=== PATIENT | male | born 1960 | race Caucasian/White ===

== ENCOUNTER → 2024-01-30 07:33 | Outpatient (REF) | payer OTHER, SELFPAY | LOC: MRI 07:33 | PROVIDERS: ATTENDING PHYSICIAN Urology; FAMILY PHYSICIAN Family Medicine | DX: R97.20 Elevated prostate specific antigen [PSA] (principal) | CPT/HCPCS: 72197; A9575 ==

== ENCOUNTER 2024-06-06 11:48 | Emergency (ER) | payer OTHER, SELFPAY ==
[2024-06-06 11:50] VITALS: BP 142/99
--- NOTE | 2024-06-06 13:23 | ED.MUSCINJ ---
HPI-Injury
General
Chief Complaint: Extremity Pain (non-traumatic)
Source: patient
Exam Limitations: none
Time Seen by Provider: 06/06/24 12:36
History of Present Illness-Injury
Initial Injury comments:
63-year-old male presents with relatively atraumatic pain and swelling to the right ankle. He was in [place] for the past several weeks and did a lot of golfing. He has a history of gout and was eating significant amount of seafood in [place] and
developed a gout flare. He received colchicine. He took his colchicine actually on his way driving home. He feels some of his symptoms have improved however he still notes swelling and pain to the anterior medial ankle. He has a history in the
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 No fevers chest pain or shortness breath. No recent injury. No other complaints at this time
Past History
Past History
ED Past Medical History: Other (Lumbar laminectomy at L4-L5 x2, lymphangitic colitis)
ED Past Surgical History: Orthopedic
Social History
Tobacco: Non-smoker
Alcohol: Occasional
Family History
Family History: Other (Father with lung cancer and colon and prostate cancer)
Phy Exam
Physical Exam
Physical Exam:
General: Well-appearing male no acute respiratory distress
HEENT: Normocephalic atraumatic
Heart: Regular rate and rhythm
Lungs: Clear no wheeze
Musculoskeletal exam: Soft tissue swelling about the right ankle is tender anterior medially. There is chronic deformity noted to the right ankle. He has good plantar and dorsiflexion of the right ankle. The right calf is slightly larger than the
left calf
Vascular: 2+ DP pulse right foot
Injury Course
Orders/Labs/Results
Orders:
Orders
06/06/24 12:48
Venous Doppler Lwr Ext Rt [US Periph Venous LOWER Ext RT] Urgent
Comment:
Reason For Exam: swelling
MDM/Problems Addressed
Differential Diagnosis Includes:
Right ankle swelling and pain recent drive back from [place]. Question inflammatory process such as gout versus tendinitis versus arthritis and DVT given recent drive. Ultrasound pending.
*Critical Care Note
Total Time (30-74mins, 75-104mins- exclusive of procedures): Not Applicable
Update Note
Update Note:
Patient with DVT in the right lower leg in the infra popliteal gastrocnemius vein. No respiratory symptoms of chest pain or shortness of breath. Not hypoxic. Will start on Eliquis and have him follow-up with his family doctor
ED Attending Note
-
Portions of this chart may have been created with voice recognition software.� Occasional wrong word or��sound alike� substitutions may have occurred due to the inherent limitations of voice recognition software.
Discharge Plan
Departure
Patient Disposition: Home (Routine Discharge)
Date of Disposition: 06/06/24
Time of Disposition: 15:30
Patient with high blood pressure during this ER visit?: No
Discharge Problem:
DVT (deep venous thrombosis)
Prescriptions:
New
Eliquis 5 mg tablet
5 mg PO BID Qty: 60 0RF
Rx Instructions:
Take 10mg twice a day for one week. Take 5mg twice a day after the first week.
No Action
oxycodone-acetaminophen 5 MG/325 MG tablet
1 tab PO Q4HPRN PRN (Reason: pain) Qty: 30 0RF
methylprednisolone 4 MG tablet
4 mg PO TAPER Qty: 0 0RF
hydrocodone-acetaminophen 1 TABLET tablet
1 tab PO Q4HPRN PRN (Reason: Pain) Qty: 10 0RF
Referrals:
Iza Elizondo MD [Family Provider] -
Activity Restrictions/Additional Instructions:
As discussed, there is a DVT in your right leg. Take Eliquis as directed. Take 10 mg twice a day for the first week then decrease to 5 mg twice a day after. Please continue to follow-up with your foot and ankle doctor as well as her family doctor
Interventions
Interventions:
*Risk Screen - Suicide Last Done: 06/06/24 11:51
*General Assessment Last Done: 06/06/24 11:51
*Neglect/Abuse Screening Last Done: 06/06/24 11:51
*ED- Fall Risk Assessment Last Done: 06/06/24 11:55
*ED COVID-19 Vaccine History Last Done: 06/06/24 11:55
ED-Skin Assessment Last Done: 06/06/24 12:39
ED-Peripheral Vascular Assessment Last Done: 06/06/24 12:39
ED-Musculoskeletal Assessment Last Done: 06/06/24 12:39
Discharge Date and Time
Print Language: PERUVIAN
[2024-06-06 15:15] VITALS: BP 128/96
[2024-06-06] MEDS: ELIQUIS 10 MG PO (15:32)
== END 2024-06-06 15:36 | disposition home or self-care (01) ==
LOC: EMR 11:48
PROVIDERS: EMERGENCY PHYSICIAN Emergency Medicine; FAMILY PHYSICIAN Family Medicine
DX: I82.401 Acute embolism and thrombosis of unspecified deep veins of right lower extremity (principal); Z80.1 Family history of malignant neoplasm of trachea, bronchus and lung
CPT/HCPCS: 99284; 93971

== ENCOUNTER 2024-11-02 12:06 | Emergency (ER) | payer OTHER, SELFPAY ==
[2024-11-02 12:08] VITALS: BP 132/83
--- NOTE | 2024-11-02 14:33 | ED.SKININJ ---
HPI-Injury
General
Chief Complaint: Head Injury
Source: patient
Exam Limitations: none
Time Seen by Provider: 11/02/24 14:07
Nursing documentation reviewed up to this point in time: agreed with
History of Present Illness-Injury
Is this injury a work related problem?: No
Is pt an associate of [facility]?: No
Initial Injury comments:
Patient states 1 week ago he was bending forward to clam picker firewood and fell. Fell forward and hit right forehead on cement floor. No LOC. Was able to get self up without diffiuclty. Developed a hematoma to his right upper forehead but had no
other symptoms. Sunday he flew to [facility] and soon after arriving he developed fever/chills, body aches, headache, diarrhea, lower abd. pain. Symptoms lasted for the remainder of week. Unable to eat or drink. States he was seen at , had neg
UA. Tested for COVID and influenza but was not told results. He returned home yesterday and reports the fever and diarrhe had resolved. Today he was able to eat a small breakfast. Reports continued weakness. States he spoke with [employer] today who
was concerned with norovirus. Advised him to come to ED. TO ED accompanied by .
Past History
Past History
ED Past Medical History: HTN and Other (Lumbar laminectomy at L4-L5 x2, lymphangitic colitis, DVT, essential tremor, prostate CA)
ED Past Surgical History: Orthopedic
Social History
Tobacco: Non-smoker
Alcohol: Occasional
Family History
Family History: Other (Father with lung cancer and colon and prostate cancer)
Review of Systems
Review of Systems
Allergies reviewed?: Yes
All Other Systems: ROS reviewed and negative except as documented in HPI and ROS
Constitutional: Reports fever, fatigue and chills
EENT: Reports no symptoms
Respiratory: Reports no symptoms
Cardiac: Reports no symptoms
ABD/GI: Reports abdominal pain (lower abd. pain this past week) and diarrhea (resolved. Started tu thru sunday)
: Reports dark urine
Musculoskeletal: Reports other (generalized bodyaches since Sunday)
Skin: Reports other (old bruising noted right lower lateral orbit. No bony tenderness, EOMI)
Neurological: Reports headache and weakness
Psychiatric: Reports no symptoms
Phy Exam
General Physical Exam
General Presentation: well appearing and no apparent distress
General age: appears stated age
General Skin: warm and dry
General Habitus: normal
General Mental: alert
Eye Exam
Eye Exam: PERRL, EOMI, conjunctiva normal and globe normal
Cardiovascular Exam
Cardiovascular Exam: regular rate/rhythm and no edema
Pulmonary Exam
Pulmonary Exam: no respiratory distress and chest non tender
Breath Sounds: Crackles: left lower and right lower
Gastrointestinal Exam
Gastrointestinal Exam: normal bowel sounds, non tender, soft, no organomegaly and non distended
Neurological Exam
Neurological Exam: alert, oriented x3, CN II-XII intact, no motor deficits, no sensory deficits and speech normal
[place] Coma Scale
Eye Opening: Spontaneous
Verbal Response: Oriented
Motor Response: Obeys Commands
GCS Total Score: 15
Musculoskeletal Exam
Musculoskeletal Exam: full ROM, no edema and neuro vasc intact
Skin Exam
Skin Exam: normal color, warm/dry and no rash
Psychiatric Exam
Psychiatric Exam: normal mood/affect
Course
Orders/Labs/Results
Orders:
Orders
11/02/24 14:32
CT Head W/o Iv Contrast Urgent
Comment:
Reason For Exam: fall
0.9% Sodium Chloride 1000 ml [Nss] 1,000 ml IV BOLUS
CR Chest - 2 Views Urgent
Comment:
Reason For Exam: fever, weakness
11/02/24 15:12
COVID-19 Antigen Urgent
Source: Nasal Swab
Complete Blood Count/With Diff Urgent
Comprehensive Metabolic Panel Urgent
Lipase Urgent
Influenza A+B Rapid Molecular Urgent
VERENA Source: Nasal Swab
Specimen Description:
11/02/24 15:43
Urinalysis Reflex To Culture Urgent
Date Specimen was Collected: 11/02/24
Time Specimen was Collected: 15:40
Urine Microscopic Reflex Cult Urgent
11/02/24 16:16
0.9% Sodium Chloride 1000 ml [Nss] 1,000 ml IV BOLUS
Abnormal Lab Results
11/02/24 11/02/24
15:12 15:43
RBC 3.48 L 10^6/uL
(4.70-6.10)
Hgb 11.7 L g/dL
(13.0-18.0)
Hct 33.5 L %
(39.0-52.0)
MCV 96.3 H fL
(80.0-94.0)
MCH 33.6 H pg
(27.0-31.0)
Abs Immat Gran (auto) 0.1 H 10^3/uL
(0-0.05)
Absolute Neuts (auto) 8.3 H 10^3/uL
(1.4-6.5)
Absolute Lymphs (auto) 0.8 L 10^3/uL
(1.2-3.4)
Absolute Monos (auto) 1.1 H 10^3/uL
(0.1-0.6)
Immature Gran % 1.3 H %
(0-0.5)
Neutrophils % 77.3 H %
(42.2-75.2)
Lymphocytes % 7.3 L %
(20.5-51.1)
Monocytes % 10.6 H %
(1.7-9.3)
Sodium 129 L mmol/L
(135-145)
Chloride 97 L mmol/L
(98-107)
Glucose 137 H mg/dl
(70-99)
Alkaline Phosphatase 238 H U/L
(38-126)
Total Protein 6.0 L g/dl
(6.3-8.2)
Urine Bacteria (Reflex) Few A
(Negative)
Urine Albumin (Reflex) 1+ A
(Neg - Trace)
11/02/24 15:12
11/02/24 15:12
Vital Signs
Initial and Last Documented VS:
Initial Vital Signs
Temp Pulse Resp BP Pulse Ox
98.2 F 96 16 132/83 97
11/02/24 12:08 11/02/24 12:08 11/02/24 12:08 11/02/24 12:08 11/02/24 12:08
Last Documented Vital Signs
Temp Pulse Resp BP Pulse Ox
98.2 F 90 21 149/95 99
11/02/24 12:08 11/02/24 18:00 11/02/24 18:00 11/02/24 17:00 11/02/24 18:00
*Radiology
Radiology exam reviewed: radiology read reviewed
*Pulse Oximetry
SaO2: 97
Oxygen Mode of Delivery: Room air
Patient hypoxic: no
*Critical Care Note
Total Time (30-74mins, 75-104mins- exclusive of procedures): Not Applicable
Update Note
Update Note:
VSS, he remains afebrile. WBC 10.7. Na [address] neg for acute findings. Given 2L NSS while in ED and reports significant improvement. Abdomen remains soft non tender. He will be discharged home, close followup with PCP. Instructed
him to have labs repeated in 1week. Given instructions on s/s to return to ED and he is agreeable to plan.
ED Attending Note
-
Portions of this chart may have been created with voice recognition software.� Occasional wrong word or��sound alike� substitutions may have occurred due to the inherent limitations of voice recognition software.
Discharge Plan
Departure
Patient Disposition: Home (Routine Discharge)
Date of Disposition: 11/02/24
Time of Disposition: 18:40
Patient with high blood pressure during this ER visit?: No
Condition: Fair
Covid-19: Not Applicable
Discharge Problem:
Acute viral syndrome
Instructions: Concussion, Adult (DC), Head Injury in Adults (DC), Hyponatremia, Dehydration in adults - ED (DC), Diarrhea in adults - ED (DC)
Prescriptions:
No Action
oxycodone-acetaminophen 5 MG/325 MG tablet
1 tab PO Q4HPRN PRN (Reason: pain) Qty: 30 0RF
methylprednisolone 4 MG tablet
4 mg PO TAPER Qty: 0 0RF
hydrocodone-acetaminophen 1 TABLET tablet
1 tab PO Q4HPRN PRN (Reason: Pain) Qty: 10 0RF
Eliquis 5 mg tablet
5 mg PO BID Qty: 60 0RF
Rx Instructions:
Take 10mg twice a day for one week. Take 5mg twice a day after the first week.
Referrals:
Iza Elizondo MD [Family Provider, Family Practice] - Follow up in 2-3 days
Referral Note: Please have your lab work (chemistry) repeated in 1 week.
Activity Restrictions/Additional Instructions:
Return to the emergency department for any changes in/worsening of your symptoms.
Interventions
Interventions:
*Risk Screen - Suicide Last Done: 11/02/24 12:08
*Neglect/Abuse Screening Last Done: 11/02/24 12:08
*ED- Fall Risk Assessment Last Done: 11/02/24 16:13
*ED COVID-19 Vaccine History Last Done: 11/02/24 16:13
ED- Neurological Assessment Last Done: 11/02/24 15:14
ED-Skin Assessment Last Done: 11/02/24 15:14
Discharge Date and Time
Print Language: LATVIAN
[2024-11-02 15:00] VITALS: BP 118/89
[2024-11-02] MEDS: NSS 1000 IV ×2 (15:11→16:34)
[2024-11-02 15:19] LABS: Hematocrit 33.5 % (39.0-52.0); Hemoglobin 11.7 g/dL (13.0-18.0); Mean Corp Hgb Conc. 34.9 g/dL (33.0-37.0); Mean Corpuscular Volume 96.3 fL (80.0-94.0); Nucleated Red Blood Cells % 0 % (-); Platelet Count 387 10^3/uL (130-400); Red Cell Dist. Width 13.5 % (11.5-14.5)
[2024-11-02 15:34] LABS: COVID-19 Antigen Negative (Negative)
[2024-11-02 15:42] LABS: ALT (SGPT) 42 U/L (0-50); AST (SGOT) 45 U/L (17-59); Albumin 3.5 g/dl (3.5-5.0); Alkaline Phosphatase 238 U/L (38-126); Blood Urea Nitrogen 18 mg/dl (9-20); Calcium 8.9 mg/dl (8.4-10.2); Carbon Dioxide 25 mmol/L (22-30); Chloride 97 mmol/L (98-107); Glucose 137 mg/dl (70-99); Lipase 53 U/L (23-300); Potassium 3.8 mmol/L (3.5-5.1); Sodium 129 mmol/L (135-145); Total Protein 6.0 g/dl (6.3-8.2); eGFR > 60.00
[2024-11-02 15:55] LABS: Urine Character Clear (Clear)
[2024-11-02 16:00] VITALS: BP 127/89
[2024-11-02 16:09] LABS: Urine Red Blood Cell 0-2 /HPF (0-2); Urine Squamous Cell 0-2 /LPF (Few)
[2024-11-02 17:00] VITALS: BP 149/95
== END 2024-11-02 19:01 | disposition home or self-care (01) ==
LOC: EMR 12:06
PROVIDERS: Nurse Practitioner; EMERGENCY PHYSICIAN Emergency Medicine; FAMILY PHYSICIAN Family Medicine
DX: B34.9 Viral infection, unspecified (principal); I10 Essential (primary) hypertension; G25.0 Essential tremor; Z86.718 Personal history of other venous thrombosis and embolism; Z85.46 Personal history of malignant neoplasm of prostate; Z80.42 Family history of malignant neoplasm of prostate; Z80.1 Family history of malignant neoplasm of trachea, bronchus and lung; Z80.0 Family history of malignant neoplasm of digestive organs
CPT/HCPCS: 99284; 96360; 96361; 70450; 71046; 80053; 81003; 81015; 83690; 85025; 87502; 87811

== ENCOUNTER 2024-11-10 17:32 | Emergency (ER) | payer OTHER, SELFPAY ==
[2024-11-10 17:35] VITALS: BP 122/86
[2024-11-10 18:16] LABS: ALT (SGPT) 86 U/L (0-50); AST (SGOT) 37 U/L (17-59); Albumin 3.6 g/dl (3.5-5.0); Alkaline Phosphatase 311 U/L (38-126); Blood Urea Nitrogen 17 mg/dl (9-20); Calcium 9.9 mg/dl (8.4-10.2); Carbon Dioxide 30 mmol/L (22-30); Chloride 95 mmol/L (98-107); Glucose 147 mg/dl (70-99); Lipase 87 U/L (23-300); Potassium 4.7 mmol/L (3.5-5.1); Sodium 131 mmol/L (135-145); Total Protein 6.5 g/dl (6.3-8.2); eGFR > 60.00
[2024-11-10 18:20] LABS: Hematocrit 33.8 % (39.0-52.0); Hemoglobin 11.4 g/dL (13.0-18.0); Mean Corp Hgb Conc. 33.7 g/dL (33.0-37.0); Mean Corpuscular Volume 96.8 fL (80.0-94.0); Red Cell Dist. Width 13.2 % (11.5-14.5)
[2024-11-10 19:14] LABS: Urine Character Clear (Clear)
[2024-11-10 19:17] LABS: Nucleated Red Blood Cells % 0 % (-); Platelet Count 1025 10^3/uL (130-400)
[2024-11-10 20:18] LABS: Urine Squamous Cell 0-2 /LPF (Few); Urine White Cell 30-40 /HPF (0-5)
[2024-11-10] MEDS: NSS 1000 IV (22:59)
[2024-11-10 23:00] VITALS: BP 134/88; BMI 27.1
--- NOTE | 2024-11-10 23:22 | ED.GENMED ---
History of Present Illness
<Tabatha Flowers PA-C - Last Filed: 11/11/24 13:16>
General
Chief Complaint: Abnormal Lab Value
Source: patient
Exam Limitations: none
Time Seen by Provider: 11/10/24 21:39
Nursing documentation reviewed up to this point in time: agreed with
History of Present Illness
History of Present Illness:
Patient is a 64-year-old male with history hypertension, essential tremors who presents to the emergency department for evaluation of persistent fatigue. Patient states he has been suffering from significant fatigue for the past 3 weeks. He states
he feels extremely 'rundown'. He has been having frequent night sweats and also states he has lost 10 pounds in the past 3 weeks. He denies any known fevers. No productive cough or viral URI symptoms. No severe abdominal pain.
He was seen in the emergency department approximately 1 week ago for GI symptoms including diarrhea which has since resolved. He is currently on a course of doxycycline for a UTI.
Overall, he believes most of his symptoms have seemed to be improving however the fatigue has remained persistent.
Patient was seen by his primary care provider who performed outpatient lab work and was sent to the emergency department given abnormal cell counts and elevated LFTs. They did send labs for tickborne illness however these have yet to result.
In addition�patient states he woke up this morning and had somewhat sudden onset atraumatic pain/swelling in his left ankle. He has hx of gout which has presented similarly. Also history of DVT of his right lower extremity in June for which he was
briefly anticoagulated on Eliquis.
Past History
<Tabatah Flowers PA-C - Last Filed: 11/11/24 13:16>
Past History
ED Past Medical History: HTN and Other (Lumbar laminectomy at L4-L5 x2, lymphangitic colitis, DVT, essential tremor, prostate CA)
ED Past Surgical History: Orthopedic
Social History
Tobacco: Non-smoker
Alcohol: Occasional
Family History
Family History: Other (Father with lung cancer and colon and prostate cancer)
Review of Systems
<Tabatha Flowers PA-C - Last Filed: 11/11/24 13:16>
Review of Systems
Allergies reviewed?: Yes
All Other Systems: ROS reviewed and negative except as documented in HPI and ROS
Phy Exam
<Tabatha Flowers PA-C - Last Filed: 11/11/24 13:16>
Physical Exam
Physical Exam:
Vitals: Patient's vital signs are stable. Afebrile
General: Patient appears in no distress.
Skin: Warm and dry, no rashes or lesions
Head: Normocephalic, atraumatic
Eyes: Sclera nonicteric. EOMs intact. No nystagmus.
Throat: Protecting airway
Neck: Normal ROM, no cervical spine tenderness, no meningismus
Cardiac: Regular rate and rhythm, no murmurs.
Pulm: Normal respiratory effort, no wheezes, rales, rhonchi heard on exam
.
Abdomen: Abdomen soft. Mild tenderness in left upper abdomen. No rebound tenderness or guarding.
Extremities: 1+ pitting edema of left ankle with localized tenderness and mild warmth. Full range of motion left ankle without pain. Chronic deformity of right ankle. 2+ palpable DP pulses bilaterally with normal sensation.
Neuro: AAOx3. Grossly intact.
Psychiatric: Normal affect.
Course
<Tabatha Flowers PA-C - Last Filed: 11/11/24 13:16>
Orders/Labs/Results
Orders:
Orders
11/10/24 17:44
Complete Blood Count/With Diff Urgent
Comprehensive Metabolic Panel Urgent
Lipase Urgent
Monotest Urgent
11/10/24 18:56
Urinalysis Reflex To Culture Urgent
Date Specimen was Collected: 11/10/24
Time Specimen was Collected: 17:41
Urine Microscopic Reflex Cult Urgent
Urine Culture Urgent
VERENA Source: U
Specimen Description:
Date Specimen was Collected: 11/10/24
Time Specimen was Collected: 17:41
11/10/24 22:02
0.9% Sodium Chloride 1000 ml [Nss] 1,000 ml IV BOLUS
Legs, left US [US Periph Venous LOWER Ext LT] Urgent
Comment:
Reason For Exam: Atraumatic left ankle swelling, hx DVT
11/10/24 22:03
Add On- LAB Urgent
Tests Added?: monospot
Electrocardiogram (*1) Urgent
Reason for Study: Fatigue / Weakness
EKG- Treatment ONCE
11/10/24 22:05
US Abdomen Complete/Upper Urgent
Comment:
Reason For Exam: Upper abdominal pain; elevated LFTs
11/11/24 00:28
Hepatitis A IgM Antibody Urgent
Hepatitis B Core Ab, IgM Urgent
Hepatitis B Surface Antibody Urgent
Hepatitis B Surface Antigen Urgent
Hepatitis C Antibody Urgent
11/11/24 01:21
Cefdinir [Omnicef] 300 mg PO NOW STA
Colchicine 1.8 mg PO NOW STA
Abnormal Lab Results
11/10/24 11/10/24
17:44 18:56
RBC 3.49 L 10^6/uL
(4.70-6.10)
Hgb 11.4 L g/dL
(13.0-18.0)
Hct 33.8 L %
(39.0-52.0)
MCV 96.8 H fL
(80.0-94.0)
MCH 32.7 H pg
(27.0-31.0)
Plt Count 1025 H 10^3/uL
(130-400)
Abs Immat Gran (auto) 0.1 H 10^3/uL
(0-0.05)
Absolute Neuts (auto) 7.0 H 10^3/uL
(1.4-6.5)
Absolute Monos (auto) 0.9 H 10^3/uL
(0.1-0.6)
Immature Gran % 1.3 H %
(0-0.5)
Lymphocytes % 12.2 L %
(20.5-51.1)
Sodium 131 L mmol/L
(135-145)
Chloride 95 L mmol/L
(98-107)
Glucose 147 H mg/dl
(70-99)
ALT 86 H U/L
(0-50)
Alkaline Phosphatase 311 H U/L
(38-126)
Ur Occult Blood Reflex 1+ A
(Negative)
Leukocyte Esterase Rfl 3+ A
(Negative)
Urine RBC 3-6 A /HPF
(0-2)
Urine WBC (Reflex) 30-40 A /HPF
(0-5)
Urine Bacteria (Reflex) Few A
(Negative)
Urine Albumin (Reflex) 1+ A
(Neg - Trace)
11/10/24 17:44
11/10/24 17:44
Vital Signs
Initial and Last Documented VS:
Initial Vital Signs
Temp Pulse Resp BP Pulse Ox
98.5 F 92 18 122/86 95
11/10/24 17:35 11/10/24 17:35 11/10/24 17:35 11/10/24 17:35 11/10/24 17:35
Last Documented Vital Signs
Temp Pulse Resp BP Pulse Ox
98.1 F 72 18 138/91 100
11/11/24 01:47 11/11/24 01:47 11/11/24 01:47 11/11/24 01:47 11/11/24 01:47
<Live Maldonado MD - Last Filed: 11/11/24 19:06>
Orders/Labs/Results
Orders:
Orders
11/10/24 17:44
Complete Blood Count/With Diff Urgent
Comprehensive Metabolic Panel Urgent
Lipase Urgent
Monotest Urgent
11/10/24 18:56
Urinalysis Reflex To Culture Urgent
Date Specimen was Collected: 11/10/24
Time Specimen was Collected: 17:41
Urine Microscopic Reflex Cult Urgent
Urine Culture Urgent
VERENA Source: U
Specimen Description:
Date Specimen was Collected: 11/10/24
Time Specimen was Collected: 17:41
11/10/24 22:02
0.9% Sodium Chloride 1000 ml [Nss] 1,000 ml IV BOLUS
Legs, left US [US Periph Venous LOWER Ext LT] Urgent
Comment:
Reason For Exam: Atraumatic left ankle swelling, hx DVT
11/10/24 22:03
Add On- LAB Urgent
Tests Added?: monospot
Electrocardiogram (*1) Urgent
Reason for Study: Fatigue / Weakness
EKG- Treatment ONCE
11/10/24 22:05
US Abdomen Complete/Upper Urgent
Comment:
Reason For Exam: Upper abdominal pain; elevated LFTs
11/11/24 00:28
Hepatitis A IgM Antibody Urgent
Hepatitis B Core Ab, IgM Urgent
Hepatitis B Surface Antibody Urgent
Hepatitis B Surface Antigen Urgent
Hepatitis C Antibody Urgent
11/11/24 01:21
Cefdinir [Omnicef] 300 mg PO NOW STA
Colchicine 1.8 mg PO NOW STA
Abnormal Lab Results
11/10/24 11/10/24
17:44 18:56
RBC 3.49 L 10^6/uL
(4.70-6.10)
Hgb 11.4 L g/dL
(13.0-18.0)
Hct 33.8 L %
(39.0-52.0)
MCV 96.8 H fL
(80.0-94.0)
MCH 32.7 H pg
(27.0-31.0)
Plt Count 1025 H 10^3/uL
(130-400)
Abs Immat Gran (auto) 0.1 H 10^3/uL
(0-0.05)
Absolute Neuts (auto) 7.0 H 10^3/uL
(1.4-6.5)
Absolute Monos (auto) 0.9 H 10^3/uL
(0.1-0.6)
Immature Gran % 1.3 H %
(0-0.5)
Lymphocytes % 12.2 L %
(20.5-51.1)
Sodium 131 L mmol/L
(135-145)
Chloride 95 L mmol/L
(98-107)
Glucose 147 H mg/dl
(70-99)
ALT 86 H U/L
(0-50)
Alkaline Phosphatase 311 H U/L
(38-126)
Ur Occult Blood Reflex 1+ A
(Negative)
Leukocyte Esterase Rfl 3+ A
(Negative)
Urine RBC 3-6 A /HPF
(0-2)
Urine WBC (Reflex) 30-40 A /HPF
(0-5)
Urine Bacteria (Reflex) Few A
(Negative)
Urine Albumin (Reflex) 1+ A
(Neg - Trace)
11/10/24 17:44
11/10/24 17:44
Vital Signs
Initial and Last Documented VS:
Initial Vital Signs
Temp Pulse Resp BP Pulse Ox
98.5 F 92 18 122/86 95
11/10/24 17:35 11/10/24 17:35 11/10/24 17:35 11/10/24 17:35 11/10/24 17:35
Last Documented Vital Signs
Temp Pulse Resp BP Pulse Ox
98.1 F 72 18 138/91 100
11/11/24 01:47 11/11/24 01:47 11/11/24 01:47 11/11/24 01:47 11/11/24 01:47
<Tabatha Flowers PA-C - Last Filed: 11/11/24 13:16>
MDM/Problems Addressed
Differential Diagnosis Includes:
Not limited to: Viral illness, tickborne illness, acute dehydration, malignancy, hepatitis, gout, DVT, etc.
MDM/Problems Addressed:
64-year-old male presenting with persistent fatigue in light of recent suspected viral illness. Sent with abnormal outpatient lab work. Also has new onset atraumatic left ankle pain/swelling. No current fever, abdominal pain. Vitals and physical
exam as above.
Lab work was obtained prior to my evaluation which reveals mild anemia and a significant thrombocytosis, which is new from his last ED visit one week ago. Chemistry reveals very mild elevation in ALT as well as an elevated alk phos level.
Thrombocytosis possibly reactive from recent viral illness. However, given systemic symptoms and elevated alk phos � malignancy would also be a concern.
Will add on viral studies, including mono and hepatitis panel.
Given atraumatic left ankle pain and significant thrombocytosis will obtain ultrasound to ensure no evidence of DVT. Will obtain abdominal US. Will give IV fluids.
Update: Ultrasound of LLE without evidence of DVT. Abdominal US unremarkable. Tama negative.
Patient did receive IV fluids. He overall appears well and nontoxic. I did discuss case with safety teacher who feels this can be managed as an outpatient as patient is afebrile here.
All symptoms/ elevated plt level may be in response to recent virus. His PCP sent lab work for tickborne illness.
In regard to atraumatic left ankle pain � no evidence of DVT. Patient does report feels very similar to prior episodes of gout. I do not suspect septic arthritis. Will star patient on colchicine.
UA appears infected w/ current persistent frequency/dysuria. Will switch to omnicef pending culture date.
Overall � feel stable for discharge home with very strict return precautions and close monitoring of symptoms and primary care/ hematology follow-up. Patient comfortable with plan. Patient seen with attending physician.
Chronic conditions affecting care:
Hypertension
Acute Exacerbation and/or Progression of Chronic Illness:
Acutely hypertensive
<Tabatha Flowers PA-C - Last Filed: 11/11/24 13:16>
*Radiology
Radiology exam reviewed: radiology read reviewed
*Pulse Oximetry
SaO2: 100
Oxygen Mode of Delivery: Room air
Patient hypoxic: no
*EKG
Interpreted by ED Provider?: Yes
EKG Intrepretation Date: 11/10/24
Interpretation: abnormal
Comparison EKG: no changes
Heart Rate: 86
Rate: normal
Rhythm: sinus
Meridian: normal axis
Interval: normal QT interval
QRS Pattern: normal QRS
Ischemia: no ischemia
*Cardiac Cath Technologist Interpretation
Rate: Cardiac Cath Technologist- N/A
*Critical Care Note
Total Time (30-74mins, 75-104mins- exclusive of procedures): Not Applicable
Data Reviewed
Review of Other/Old Records Reveals: Discharge Summary (ED visit from 11/02/2024 suspected acute viral syndrome)
<Tabatha Flowers PA-C - Last Filed: 11/11/24 13:16>
Patient Management
Discussion with other providers: Tower Crane Operator (Case discussed with hematology and ED attending physician)
Escalation/DeEscalation of care consider admission/obs:
Discharge with outpatient hematology follow-up
ED Attending Note
<Tabatha Flowers PA-C - Last Filed: 11/11/24 13:16>
-
Portions of this chart may have been created with voice recognition software.� Occasional wrong word or��sound alike� substitutions may have occurred due to the inherent limitations of voice recognition software.
<Live Maldonado MD - Last Filed: 11/11/24 19:06>
ED Attending Note
Patient seen and examined by attending physician: Yes
ED Attending Note:
Pt seen in ED and treated recently secondary to diarrhea presents to ED for evaluation after outpatient blood work, ordered by PCP during follow up visit, revealed elevated WBC and Platelets. Overall, patient states that for the past 48hrs, he has
felt overall improvement in symptoms. He's having more formed stool with normal diet. Denies fever/dizziness/weakness.
General: well nourished male, in no acute distres. afebrile
Heent: nc/at. eomi
Lungs: cta
Heart: rrr
Abd: soft and nontender. no distention. normal BS
Neuro: aao x 3. no focal neurological deficit.
Skin: no rash.
Psych: pleasant and cooperative
Reviewed blood work and discussed with the patient. Afterwards, discussed with on-call safety teacher who recommends outpatient f/u, including repeat blood work. Pt agrees with treatment plan. Pt otherwise is afebrile, hemodynamically stable, without
any acute distress at time of discharge.
Discharge Plan
Departure
Patient Disposition: Home (Routine Discharge)
Date of Disposition: 11/11/24
Time of Disposition: 01:30
Patient with high blood pressure during this ER visit?: Yes
Discharge Problem:
Fatigue, Thrombocytosis, Acute UTI, Ankle pain, left
Instructions: Urinary tract infection in adults - ED (DC), Gout - ED (DC), BLOOD PRESSURE
Prescriptions:
New
cefdinir 300 mg capsule
300 mg PO BID 7 Days Qty: 14 0RF
colchicine 0.6 mg capsule
0.6 mg PO DAILY 5 Days Qty: 5 0RF
No Action
oxycodone-acetaminophen 5 MG/325 MG tablet
1 tab PO Q4HPRN PRN (Reason: pain) Qty: 30 0RF
methylprednisolone 4 MG tablet
4 mg PO TAPER Qty: 0 0RF
hydrocodone-acetaminophen 1 TABLET tablet
1 tab PO Q4HPRN PRN (Reason: Pain) Qty: 10 0RF
Eliquis 5 mg tablet
5 mg PO BID Qty: 60 0RF
Rx Instructions:
Take 10mg twice a day for one week. Take 5mg twice a day after the first week.
Referrals:
Iza Elizondo MD [Family Provider, Family Practice] - Follow up in 2-3 days
Lars Villagomez DO [Active, Hematology / Oncology] - Next open appointment
Activity Restrictions/Additional Instructions:
RETURN TO THE EMERGENCY DEPARTMENT ANY FEVER OR CHILLS, SIGNIFICANT FATIGUE, WORSENING PAIN, SWELLING, REDNESS OF LEFT ANKLE, SEVERE ABDOMINAL PAIN, SIGNS OF SEVERE DEHYDRATION, WORSENING CURRENT SYMPTOMS, OR ANY OTHER CONCERNS
- As discussed�you were found to have significantly elevated platelets in the emergency department. This may be a reaction to an underlying viral illness however it is important that you follow-up with hematology for further evaluation/management
to ensure levels returned to normal.
- A new prescription for antibiotic has been sent for suspected UTI. Please discontinue the doxycycline. Take Omnicef twice a day for the next week. We will call you if your urine culture is positive and not sensitive to Omnicef.
- A prescription for colchicine has been sent to your pharmacy for suspected gout flare of your left ankle/foot. You were given 1.2 mg in the emergency department. You should take an additional 0.6 mg in 1 hour. Then, continue to take 0.6 mg
daily until flare resolves.
-Stay well-hydrated.
- Follow-up with your primary care/safety teacher for further evaluation/management to ensure symptoms improve
Monitor your symptoms closely and return to the emergency department with any acute worsening/new symptoms or any other concerns
Interventions
Interventions:
*Risk Screen - Suicide Last Done: 11/10/24 17:39
*General Assessment Last Done: 11/10/24 17:39
*Neglect/Abuse Screening Last Done: 11/10/24 17:39
*ED- Fall Risk Assessment Last Done: 11/10/24 22:29
*ED COVID-19 Vaccine History Last Done: 11/10/24 17:39
*Nursing Disposition Last Done: 11/11/24 01:47
Discharge Date and Time
Discharge Date/Time: 11/11/24 01:57
Print Language: ESTONIAN
[2024-11-11 00:34] VITALS: BP 130/78
[2024-11-11 01:38] LABS: Hepatitis B Surface Antigen Negative (Negative)
[2024-11-11] MEDS: COLCHICINE 1.2 MG PO (01:40)
[2024-11-11] MEDS: OMNICEF 300 MG PO (01:41)
[2024-11-11 01:47] VITALS: BP 138/91
[2024-11-11 01:55] LABS: Hepatitis C Antibody Negative (Negative)
== END 2024-11-11 01:57 | disposition home or self-care (01) ==
LOC: EMR 17:32
PROVIDERS: Emergency Medicine; Physician Assistant; EMERGENCY PHYSICIAN Emergency Medicine; FAMILY PHYSICIAN Family Medicine
DX: D75.839 Thrombocytosis, unspecified (principal); N39.0 Urinary tract infection, site not specified; R53.83 Other fatigue; D64.9 Anemia, unspecified; R22.42 Localized swelling, mass and lump, left lower limb; M25.572 Pain in left ankle and joints of left foot; I10 Essential (primary) hypertension; Z86.718 Personal history of other venous thrombosis and embolism; Z79.01 Long term (current) use of anticoagulants; Z79.2 Long term (current) use of antibiotics
CPT/HCPCS: 96360; 99284; 76700; 80053; 81003; 81015; 83690; 85025; 86308; 86705; 86706; 86709; 86803; 87086; 87340; 93005; 93971